=== PATIENT | male | born 1940 | race Hispanic/Latino ===

== ENCOUNTER 2016-04-22 14:17 | Outpatient (CLI) | payer MEDICARE ==
[2016-04-22 15:50] LABS: Blood Urea Nitrogen 15 mg/dL (9-20)
--- NOTE | 2016-04-23 09:32 | Magnetic Resonance Report ---
MRI BRAIN WITH AND WITHOUT CONTRAST: INDICATION: Unspecified dementia. COMPARISON: 10/09/2009 FINDINGS: Multiplanar and multisequence MRI of the brain performed utilizing 12 mL MultiHance intravenously and again demonstrates symmetric, mildly enlarged ventricles and sulci without acute infarct, hemorrhage, mass effect or midline shift. No abnormal extra-axial masses or fluid collections. Moderate periventricular and white matter, including the centrum semiovale, FLAIR and T2 weighted hyperintensities may again represent small vessel end artery ischemic disease with few small lacunar infarcts noted, now measuring up to 5-6 mm in the right bell radiata. Approximately 3.5 cm linear right frontal lobe infarction superiorly with possible mineralization again noted as on axial series 5, image 24, amongst others. No focal suspicious abnormal enhancement. Normal major intracranial vascular flow voids. Posterior fossa again demonstrates symmetric seventh and eighth nerve complexes and preserved basilar cisterns. Few small bilateral cerebellar lacunar infarcts again noted, the largest 5 mm on the left, axial series 6, image 6. Normal eye globes. Approximately 3 mm leftward nasal septal spur and slight leftward nasal septal deviation. Some susceptibility artifact in the mouth. Slight maxillary sinusitis inferiorly, left more than right. Mild sphenoid sinusitis, possibly on the left may also be present with probable interval clearing of the right sphenoid sinus. Frontal sinuses again aplastic/hypoplastic. Normal midline structures without evidence of Chiari malformation. CONCLUSION: 1. No acute intracranial abnormality with age-appropriate atrophy, moderate microvascular changes and few small lacunar infarcts, as described. 2. 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 Thank you for the opportunity to participate in this patient's care.
== END 2016-04-22 14:18 | disposition home or self-care (01) ==
LOC: MRI 14:17
PROVIDERS: ATTEND Internal Medicine
DX: F03.90 Unspecified dementia, unspecified severity, without behavioral disturbance, psychotic disturbance, mood disturbance, and anxiety (principal); I63.8 Other cerebral infarction; I51.7 Cardiomegaly; J34.2 Deviated nasal septum; J32.0 Chronic maxillary sinusitis; J32.3 Chronic sphenoidal sinusitis
CPT/HCPCS: 36415; 70553; 82565; 84520; A9577

== ENCOUNTER 2017-05-11 06:27 | Day surgery (SDC) | payer MEDICARE ==
[2017-05-11 07:45] LABS: INR 0.98 (0.87-1.13)
[2017-05-11 07:46] LABS: Partial Thromboplastin Time 31.1 Sec. (24.2-36.6)
--- NOTE | 2017-05-11 10:17 | Short Stay Summary ---
Short Stay Documentation Date of service: 05/11/17 - History Principal diagnosis: right neck mass H&P: obtained from office - Allergies and Medications Current Medications: Allergies No Known Allergies Allergy (Verified 05/11/17 06:52) Home Medications Medication Instructions Recorded Confirmed Last Taken Type AtorvaSTATin [Lipitor] 40 mg PO QHS 05/11/17 05/11/17 05/10/17 History Citalopram [celeXA] 20 mg PO QDAY 05/11/17 05/11/17 05/10/17 History Donepezil [Aricept] 5 mg PO QDAY 05/11/17 05/11/17 05/10/17 History Gabapentin [Neurontin] 300 mg PO DAILY 05/11/17 05/11/17 05/10/17 History Glycopyrrolate/Formoterol Fum 2 puff IH BID 05/11/17 05/11/17 05/10/17 History [Bevespi Aerosphere Inhaler] Lisinopril/Hydrochlorothiazide 1 each PO DAILY 05/11/17 05/11/17 05/10/17 History [Zestoretic 10-12.5 mg Tablet] Warfarin [Coumadin] 5 mg PO QDAY 05/11/17 05/11/17 05/05/17 History - Physical exam HEENT: Other (hard 2-3cm mass in right submandibular area) - Brief post op/procedure progress note Date of procedure: 05/11/17 Pre-op diagnosis: right neck mass Post-op diagnosis: other (enlarged submandibular gland) Anesthesia: local Surgeon: MAYRA MUNIZ Estimated blood loss: none Pathology: list (FNA) Specimen disposition: to lab Condition: stable - Disposition Condition at discharge: Good Disposition: [id number] TO HOME OR SELFCARE Short Stay Discharge Plan Follow up with: RICHARD HUMPHREY MD [Primary Care Provider] - 7 Days
--- NOTE | 2017-05-11 10:21 | Ultrasound Report ---
ULTRASOUND BIOPSY SOFT TISSUE NECK OR CHEST History: Localized mass/lump in neck, right neck mass. Description of procedure: Informed consent was obtained. Sterile technique was utilized. Initial exam/scan of the patient demonstrates a palpable 3.3 x 2.1 cm nodule in the region of the right submandibular gland. In fact, this has the appearance of a backed up or engorged submandibular gland. A dilated submandibular duct is identified. No other mass or adenopathy was detected. After discussing these findings with the patient, FNA was performed to insure no other abnormality was present. The samples were deemed adequate by the pathologist on site who noted acute and chronic inflammatory cells but no neoplastic cells on initial exam. Please await the formal report. Impression: Fine-needle aspiration was performed on an engorged right submandibular gland as outlined above. I suspect there is an obstructing stone in the distal right submandibular duct given the ultrasound images. No suspicious mass or adenopathy. Please correlate with the patient's clinical presentation.
[2017-05-11 10:46] VITALS: BP 146/60
== END 2017-05-11 06:28 | disposition home or self-care (01) ==
LOC: CATHLABREC 06:27 → EDSTATUS 07:30
PROVIDERS: ATTEND Otolaryngology
DX: Z79.01 Long term (current) use of anticoagulants (principal); Z79.899 Other long term (current) drug therapy
CPT/HCPCS: 10022; 20206; 36415; 76942; 85610; 85730; 88112; 88172; 88173; 88305; 88333